=== PATIENT | male | born 1990 | race African-American/Black ===

== ENCOUNTER 2018-03-02 21:54 | Emergency (ER) | payer SELFPAY ==
[~2018-03-02] VITALS: Ht 195.6 cm; Wt 76.0 kg
[2018-03-02 22:17] VITALS: BP 123/71; PULSE 88; RESP 18; TEMP 98.8; O2SAT 97
--- NOTE | 2018-03-02 22:58 | PD ---
HPI Chief Complaint: Pain: Acute or Chronic Time Seen by Provider: 22:52 Travel History International Travel<30 days: No Contact w/Intl Traveler<30days: No Traveled to known affect area: No History of Present Illness HPI 27-year-old male with PMH of asthma presents to the ED for evaluation of 3 day history of shortness of breath with left lateral midthoracic back pain. Patient endorses chills. He endorses cough productive of yellowish phlegm. He denies sinus congestion, rhinorrhea. Denies fevers, nausea, CP, vomiting, changes in bowel habits. States symptoms are similar to previous episodes of bronchitis. He has a rescue inhaler but does not use nebulizer treatments at home. PFSH Past Medical History Medical History: Denies Significant Hx Immunizations Current: Yes Tetanus Vaccination: < 5 Years Past Surgical History Surgical History: No Previous Surgery Social History Alcohol Use: Yes (OCC) Tobacco Use: Yes Substance Use: No Allergies-Medications (Allergen,Severity, Reaction): Coded Allergies: No Known Allergies (Verified Allergy, 12/17/17) Reported Meds & Prescriptions Reported Meds & Active Scripts Active Prednisone 20 Mg Tab 40 Mg PO DIRECTED 4 Days Proair Hfa 8.5 GM Inh (Albuterol Sulfate) 90 Mcg/Act Aer 2 Puff INH Q6H PRN 108 mcg/actuation Azithromycin 250 Mg Tab 250 Mg PO DAILY Review of Systems Except as stated in HPI: all other systems reviewed are Neg Physical Exam Narrative GENERAL: Tall, thin, -Macanese male in no acute distress. SKIN: Focused skin assessment warm/dry. HEAD: Normocephalic. EYES: No scleral icterus. No injection or drainage. NECK: Supple, trachea midline. No JVD or lymphadenopathy. CARDIOVASCULAR: Regular rate and rhythm without murmurs, gallops, or rubs. RESPIRATORY: Breath sounds tight, rhonchi and wheezing bilaterally. No accessory muscle use. GASTROINTESTINAL: Abdomen soft, non-tender, nondistended. MUSCULOSKELETAL: No cyanosis, or edema. BACK: Nontender without obvious deformity. No CVA tenderness. Data Data Last Documented VS Orders Orders Electrocardiogram (03/02/18 22:49) Basic Metabolic Panel (Bmp) (03/02/18 22:49) Complete Blood Count With Diff (03/02/18 22:49) Chest, Single Ap (03/02/18 22:49) Ecg Monitoring (03/02/18 22:49) Iv Access Insert/Monitor (03/02/18 22:49) Oximetry (03/02/18 22:49) Methylprednisolone So Succ Inj (Solumedr (03/02/18 23:00) Albuterol-Ipratropium Neb (Duoneb Neb) (03/02/18 23:00) Sodium Chloride 0.9% Flush (Ns Flush) (03/02/18 23:00) Magnesium (Mg) (03/02/18 22:49) Ed Discharge Order (03/03/18 01:17) Ketorolac Inj (Toradol Inj) (03/03/18 01:30) Labs Laboratory Tests Test 03/02/18 22:54 White Blood Count 17.3 TH/MM3 Red Blood Count 5.81 MIL/MM3 Hemoglobin 15.5 GM/DL Hematocrit 47.1 % Mean Corpuscular Volume 81.0 FL Mean Corpuscular Hemoglobin 26.7 PG Mean Corpuscular Hemoglobin Concent 33.0 % Red Cell Distribution Width 14.8 % Platelet Count 277 TH/MM3 Mean Platelet Volume 9.3 FL Neutrophils (%) (Auto) 84.2 % Lymphocytes (%) (Auto) 7.2 % Monocytes (%) (Auto) 7.3 % Eosinophils (%) (Auto) 0.3 % Basophils (%) (Auto) 1.0 % Neutrophils # (Auto) 14.5 TH/MM3 Lymphocytes # (Auto) 1.2 TH/MM3 Monocytes # (Auto) 1.3 TH/MM3 Eosinophils # (Auto) 0.0 TH/MM3 Basophils # (Auto) 0.2 TH/MM3 CBC Comment DIFF FINAL Differential Comment Blood Urea Nitrogen 12 MG/DL Creatinine 1.31 MG/DL Random Glucose 108 MG/DL Calcium Level 9.7 MG/DL Magnesium Level 2.0 MG/DL Sodium Level 139 MEQ/L Potassium Level 4.4 MEQ/L Chloride Level 103 MEQ/L Carbon Dioxide Level 27.5 MEQ/L Anion Gap 9 MEQ/L Estimat Glomerular Filtration Rate 80 ML/MIN MDM Medical Decision Making Medical Screen Exam Complete: Yes Emergency Medical Condition: Yes Differential Diagnosis Asthma exacerbation versus bronchitis versus PNA versus spontaneous pneumothorax versus other Narrative Course 27-year-old male with PMH of asthma presents to the ED for evaluation of 3 day history of shortness of breath with left lateral midthoracic back pain. Patient endorses chills. He endorses cough productive of yellowish phlegm. He denies sinus congestion, rhinorrhea. Denies fevers, nausea, CP, vomiting, changes in bowel habits. States symptoms are similar to previous episodes of bronchitis. He has a rescue inhaler but does not use nebulizer treatments at home. Patient is afebrile, O2 saturations 97% with a respiratory rate of 18 on presentation. On exam this is a tall, thin, -[place] male in no acute distress. There is wheezing and coarse lung sounds bilaterally. IV was established. Patient was administered 125 mg Solu-Medrol and duo nebs 3. Basic lab work, imaging of the chest ordered and pending. Patient signed out to Dr. Mercer at end of shift. Please see his note for disposition. Scripts Prednisone (Prednisone) 20 Mg Tab 40 MG PO DIRECTED for 4 Days, TAB 0 Refills Prov: Juan Antonio Mercer MD 03/03/18 Albuterol 8.5 GM Inh (Proair Hfa 8.5 GM Inh) 90 Mcg/Act Aer 2 PUFF INH Q6H Y for SHORTNESS OF BREATH, #1 INHALER 0 Refills 108 mcg/actuation Prov: Juan Antonio Mercer MD 03/03/18 Azithromycin (Azithromycin) 250 Mg Tab 250 MG PO DAILY for Infection, #4 TAB 0 Refills Prov: Juan Antonio Mercer MD 03/03/18 Chandni Joshi March 02, 2018 22:58
[2018-03-02] MEDS ORDERED: SODIUM CHLORIDE 0.9% FLUSH 10 ML FLUSH IVF PRN (23:00)
[2018-03-02] MEDS ORDERED: methylPREDNISolone SOD SUCC 125 MG/2 ML VIAL IV PUSH ONE (23:00)
[2018-03-02] MEDS: RESP: ALBUTEROL 2.5 MG/IPRATROPIUM 0.5 MG NEB (SCH) INH ×2 (23:04→23:05)
[2018-03-02 23:05] VITALS: O2SAT 97
[2018-03-02 23:15] LABS: AUTOMATED NEUTROPHIL # 14.5 TH/MM3 (1.8-7.7); BASOPHIL # 0.2 TH/MM3 (0-0.2); EOSINOPHIL % 0.3 % (0.0-4.0); HEMATOCRIT 47.1 % (39.0-51.0); HEMOGLOBIN 15.5 GM/DL (13.0-17.0); LYMPH % 7.2 % (9.0-44.0); LYMPHOCYTE # 1.2 TH/MM3 (1.0-4.8); MEAN CORPUSCULAR HEMOGLOBIN 26.7 PG (27.0-34.0); MEAN PLATELET VOLUME 9.3 FL (7.0-11.0); MONO % 7.3 % (0.0-8.0); MONOCYTE # 1.3 TH/MM3 (0-0.9); NEUT % 84.2 % (16.0-70.0); PLATELET COUNT 277 TH/MM3 (150-450); RED BLOOD COUNT 5.81 MIL/MM3 (4.50-5.90); RED CELL DISTRIBUTION WIDTH 14.8 % (11.6-17.2); WHITE BLOOD COUNT 17.3 TH/MM3 (4.0-11.0)
--- NOTE | 2018-03-02 23:16 | RADRPT ---
EXAM DATE/TIME: 03/02/2018 23:01 [facility] COMPARISON: No previous studies available for comparison. INDICATIONS : Chest pain for 3 days MEDICAL HISTORY : None. SURGICAL HISTORY : None. ENCOUNTER: Initial ACUITY: 3 days PAIN SCORE: 8/10 LOCATION: Bilateral chest FINDINGS: A single view of the chest demonstrates the lungs to be symmetrically aerated without evidence of mas s, infiltrate or effusion. The cardiomediastinal contours are unremarkable. Osseous structures are intact. CONCLUSION: No acute disease. Asael Delacruz MD on March 02, 2018 at 23:14 Board Certified Radiologist. This report was verified electronically.
[2018-03-02 23:39] LABS: BICARBONATE 27.5 MEQ/L (21.0-32.0); CALCIUM 9.7 MG/DL (8.5-10.1); CREATININE 1.31 MG/DL (0.60-1.30)
[2018-03-03] MEDS ORDERED: AZIT250T3 PO (01:07)
[2018-03-03] MEDS ORDERED: PRED20 PO (01:07)
[2018-03-03] MEDS ORDERED: ALBUAER3 INH (01:07)
--- NOTE | 2018-03-03 01:08 | PD ---
Data Data Last Documented VS Vital Signs Date Time Temp Pulse Resp B/P (MAP) Pulse Ox O2 Delivery O2 Flow Rate FiO2 03/03/18 02:05 137/64 (88) 03/02/18 23:05 97 21 03/02/18 22:17 98.8 88 18 Orders Orders Electrocardiogram (03/02/18 22:49) Basic Metabolic Panel (Bmp) (03/02/18 22:49) Complete Blood Count With Diff (03/02/18 22:49) Chest, Single Ap (03/02/18 22:49) Ecg Monitoring (03/02/18 22:49) Iv Access Insert/Monitor (03/02/18 22:49) Oximetry (03/02/18 22:49) Methylprednisolone So Succ Inj (Solumedr (03/02/18 23:00) Albuterol-Ipratropium Neb (Duoneb Neb) (03/02/18 23:00) Sodium Chloride 0.9% Flush (Ns Flush) (03/02/18 23:00) Magnesium (Mg) (03/02/18 22:49) Ed Discharge Order (03/03/18 01:17) Ketorolac Inj (Toradol Inj) (03/03/18 01:30) Labs Laboratory Tests Test 03/02/18 22:54 White Blood Count 17.3 TH/MM3 Red Blood Count 5.81 MIL/MM3 Hemoglobin 15.5 GM/DL Hematocrit 47.1 % Mean Corpuscular Volume 81.0 FL Mean Corpuscular Hemoglobin 26.7 PG Mean Corpuscular Hemoglobin Concent 33.0 % Red Cell Distribution Width 14.8 % Platelet Count 277 TH/MM3 Mean Platelet Volume 9.3 FL Neutrophils (%) (Auto) 84.2 % Lymphocytes (%) (Auto) 7.2 % Monocytes (%) (Auto) 7.3 % Eosinophils (%) (Auto) 0.3 % Basophils (%) (Auto) 1.0 % Neutrophils # (Auto) 14.5 TH/MM3 Lymphocytes # (Auto) 1.2 TH/MM3 Monocytes # (Auto) 1.3 TH/MM3 Eosinophils # (Auto) 0.0 TH/MM3 Basophils # (Auto) 0.2 TH/MM3 CBC Comment DIFF FINAL Differential Comment Blood Urea Nitrogen 12 MG/DL Creatinine 1.31 MG/DL Random Glucose 108 MG/DL Calcium Level 9.7 MG/DL Magnesium Level 2.0 MG/DL Sodium Level 139 MEQ/L Potassium Level 4.4 MEQ/L Chloride Level 103 MEQ/L Carbon Dioxide Level 27.5 MEQ/L Anion Gap 9 MEQ/L Estimat Glomerular Filtration Rate 80 ML/MIN MDM Medical Record Reviewed: Yes Supervised Visit with JC: Yes Narrative Course I, Dr. Mercer, have reviewed the advance practice practitioner's documentation and am in agreement, met with the patient face to face, made the diagnosis, and the medical decision making was done by me. *My assessment and Findings: Patient has had similar symptoms in the past diagnosed as bronchitis. He reports today the back pain is worse than normal. In addition he reports some generalized muscle aches and pains. His workup shows leukocytosis of 17 which is considered nonspecific. One dose of IM Toradol to be administered. Patient received breathing treatments Solu-Medrol. Overall respiratory symptoms have improved somewhat. Scripts as below. Patient likely benefit from some time off work. Diagnosis Primary Impression: Bronchitis Additional Impression: Low back pain Qualified Codes: M54.5 - Low back pain Referrals: [facility] call for appointment Med/Other Pt SpecificInfo: Prescription(s) given Scripts Prednisone (Prednisone) 20 Mg Tab 40 MG PO DIRECTED for 4 Days, TAB 0 Refills Prov: Juan Antonio Mercer MD 03/03/18 Albuterol 8.5 GM Inh (Proair Hfa 8.5 GM Inh) 90 Mcg/Act Aer 2 PUFF INH Q6H Y for SHORTNESS OF BREATH, #1 INHALER 0 Refills 108 mcg/actuation Prov: Juan Antonio Mercer MD 03/03/18 Azithromycin (Azithromycin) 250 Mg Tab 250 MG PO DAILY for Infection, #4 TAB 0 Refills Prov: Juan Antonio Mercer MD 03/03/18 Disposition: 01 DISCHARGE HOME Condition: Stable Juan Antonio Mercer MD March 03, 2018 01:07
[2018-03-03] MEDS ORDERED: KETOROLAC TROMETHAMINE 60 MG/2 ML (IM) VIAL IM ONE (01:30)
[2018-03-03 02:05] VITALS: BP 137/64
--- NOTE | 2018-03-03 18:21 | EKG ---
Date Performed: 03/02/2018 Time Performed: 23:18:20 PTAGE: 27 years EKG: Sinus rhythm NONSPECIFIC T-WAVE ABNORMALITY BORDERLINE ECG NO PREVIOUS TRACING DOCTOR: Jeremiah Meyer Interpretating Date/Time 03/03/2018 18:20:09
== END 2018-03-03 02:10 | disposition home or self-care (01) ==
LOC: NEPC 21:54
DX: J40 Bronchitis, not specified as acute or chronic (principal); M54.5 Low back pain; R94.31 Abnormal electrocardiogram [ECG] [EKG]; Z72.0 Tobacco use
CPT/HCPCS: 71045; 80048; 83735; 85025; 93005; 94640; 94664; 96372; 96374; 99284; J1885; J2930